=== PATIENT | female | born 1995 | race Two or more races ===

== ENCOUNTER 2022-04-22 13:03 | Emergency (ER) | payer MEDICAID ==
[~2022-04-22] VITALS: Ht 170.2 cm; Wt 76.0 kg
[2022-04-22] MEDS ORDERED: ACETAMINOPHEN 325 MG TAB PO ONE (15:00)
[2022-04-22 15:18] LABS: Albumin 3.5 g/dL (3.4-5.0); Calcium 10.1 mg/dL (8.5-10.1); Potassium 4.1 mmol/L (3.5-5.1)
[2022-04-22 15:19] LABS: Basophils # (auto) 0 10 ^3/uL (0-0.2); Basophils % (auto) 0.3 % (0.0-2.0); Eosinophils # (auto) 0 10 ^3/uL (0-0.8); Eosinophils % (auto) 0.6 % (0.0-7.0); Hematocrit 42.9 % (36.0-46.0); Hemoglobin 14.1 g/dL (12.2-16.2); Lymphocytes # (auto) 1.4 10 ^3/uL (0.4-5.4); Lymphocytes % (auto) 19.1 % (10.0-50.0); Mean Corpuscular Hemoglobin 27.1 pg (28.0-32.0); Mean Corpuscular Hgb Conc. 32.8 g/dL (32.0-36.0); Mean Corpuscular Volume 82.6 fL (80.0-100.0); Monocytes # (auto) 0.3 10 ^3/uL (0-1.3); Monocytes % (auto) 4.5 % (0.0-12.0); Neutrophils # (auto) 5.4 10 ^3/uL (1.6-8.6); Neutrophils % (auto) 75.5 % (37.0-80.0); Nucleated Red Blood Cells % 0.2 %; Red Blood Cells 5.19 10^6/uL (4.0-5.20); Red Cell Distribution Width 15.8 % (11.8-14.3); White Blood Cell 7.2 10^3/uL (4.4-10.8)
[2022-04-22 15:20] LABS: BUN/Creatinine Ratio 9.7
[2022-04-22 15:24] LABS: Bilirubin, Total 0.4 mg/dL (0.2-1.0); Total Protein 7.7 g/dL (6.4-8.2)
[2022-04-22 16:00] LABS: Urine Bacteria FEW /hpf (None Seen); Urine Blood Negative /uL (Negative); Urine Mucus FEW (None Seen); Urine Specific Gravity 1.025 (1.001-1.035); Urine WBC 4 /hpf (0 - 5)
[2022-04-22] MEDS ORDERED: CEFP200T15 PO (16:17)
[2022-04-22 18:00] VITALS: BP 110/71
== END 2022-04-22 18:02 | disposition home or self-care (01) ==
LOC: ER 13:03
DX: O23.31 Infections of other parts of urinary tract in pregnancy, first trimester (principal); N39.0 Urinary tract infection, site not specified; O26.891 Other specified pregnancy related conditions, first trimester; R10.2 Pelvic and perineal pain; Z3A.11 11 weeks gestation of pregnancy; Z88.0 Allergy status to penicillin
CPT/HCPCS: 36415; 76700; 76801; 80053; 81001; 84702; 85025

== ENCOUNTER 2022-06-23 14:43 | Observation (INO) | payer MEDICAID ==
[~2022-06-23 14:43] MED LIST: CEFP200T15 PO
[2022-06-23] MEDS ORDERED: PREN-96 PO (15:44)
[2022-06-23] MEDS ORDERED: BUPR150T8 PO (15:44)
[2022-06-23] MEDS ORDERED: ASPI1TAB20 PO (15:44)
[2022-06-23] MEDS ORDERED: FLUO1TAB14 PO (15:44)
== END 2022-06-23 16:10 | disposition home or self-care (01) ==
LOC: LDRP 14:43
PROVIDERS: ADMIT Obstetrics & Gynecology; ATTEND Obstetrics & Gynecology
DX: O26.892 Other specified pregnancy related conditions, second trimester (principal); R10.9 Unspecified abdominal pain; O34.62 Maternal care for abnormality of vagina, second trimester; N89.8 Other specified noninflammatory disorders of vagina; Z3A.20 20 weeks gestation of pregnancy; Z88.0 Allergy status to penicillin; W19.XXXA Unspecified fall, initial encounter; Y93.89 Activity, other specified; Y92.89 Other specified places as the place of occurrence of the external cause
CPT/HCPCS: 59025; 94760; G0378

== ENCOUNTER 2023-10-30 13:50 | Emergency (ER) | payer MEDICAID ==
[~2023-10-30] VITALS: Ht 172.7 cm; Wt 90.0 kg
[~2023-10-30 13:50] MED LIST changes: +ASPI1TAB20 PO; +BUPR150T8 PO; +FLUO1TAB14 PO; +PREN-96 PO
[2023-10-30 15:22] VITALS: BP 117/80; PULSE 100; RESP 18; O2SAT 95
[2023-10-30] MEDS ORDERED: IBUP-1455 PO (16:26)
[2023-10-30] MEDS ORDERED: IBUPROFEN 800 MG TAB PO ONE (16:30)
== END 2023-10-30 17:18 | disposition home or self-care (01) ==
LOC: ER 13:50
DX: M79.641 Pain in right hand (principal); M25.531 Pain in right wrist; T42.6X5A Adverse effect of other antiepileptic and sedative-hypnotic drugs, initial encounter; F41.9 Anxiety disorder, unspecified; F32.9 Major depressive disorder, single episode, unspecified; Z88.0 Allergy status to penicillin; Z79.899 Other long term (current) drug therapy; Y92.89 Other specified places as the place of occurrence of the external cause